=== PATIENT | male | born 1970 | race Caucasian/White ===

== ENCOUNTER → 2016-07-19 | Outpatient (CLI) | payer OTHER ==
[~2016-07-19] MED LIST: HYDROCODONE BIT1 T11 PO; MOTRIN800 MG PO
[2016-07-19 10:42] LABS: BASO % 0.6 % (0.0-1.0); EOS # 0.1 10*3/uL (0.0-0.4); EOS % 1.6 % (1.0-4.0); HEMATOCRIT 43.8 % (42.0-52.0); HEMOGLOBIN 14.5 g/dl (14.0-18.0); LYMPH # 1.7 10*3/uL (1.3-4.4); LYMPH % 27.7 % (27.0-41.0); MEAN CELL VOLUME 90.3 fl (80.0-94.0); MEAN CORPUSCULAR HGB 29.9 pg (27.0-31.0); MEAN CORPUSCULAR HGB CONC 33.1 g/dl (33.0-37.0); MEAN PLATELET VOLUME 9.9 fl (9.6-12.3); MONO # 0.3 10*3/uL (0.1-1.0); MONO % 5.2 % (3.0-9.0); NEUT % 64.7 % (47.0-73.0); PLATELET COUNT AUTOMATED 185 10*3/uL (130-400); RED BLOOD COUNT 4.85 10*6/uL (4.50-5.90); RED CELL DISTRI WIDTH 12.6 % (0-14.5); WHITE BLOOD COUNT 6.2 10*3/uL (4.8-10.8)
[2016-07-19 11:12] LABS: BILIRUBIN NEGATIVE (NEGATIVE); BLOOD TRACE-INTACT (NEGATIVE); CLARITY CLEAR (CLEAR); COLOR YELLOW (YELLOW); GLUCOSE NEGATIVE (NEGATIVE); KETONE NEGATIVE (NEGATIVE); LEUKO ESTERASE NEGATIVE (NEGATIVE); NITRITE NEGATIVE (NEGATIVE); PH 5.5 (5.0-9.0); PROTEIN NEGATIVE (NEGATIVE); SPECIFIC GRAVITY 1.025 (1.005-1.030); UROBILINOGEN 0.2 E.U./dl (0.2-1.0)
[2016-07-19 11:13] LABS: ALBUMIN 4.1 gm/dl (3.1-4.5); ALKALINE PHOSPHATASE 44 U/L (45-117); BILIRUBIN, TOTAL 0.6 mg/dl (0.2-1.0); BUN 17 mg/dl (7-24); CARBON DIOXIDE 27 mmol/L (21-32); CHLORIDE 108 mmol/L (98-107); EST GLOM FILT AFRICAN AMERICAN > 60 ml/min; GLUCOSE 93 mg/dL (65-99); POTASSIUM 4.1 mmol/L (3.5-5.1); SGOT/AST 89 IU/L (3-35); SGPT/ALT 49 U/L (12-78); SODIUM 139 mmol/L (136-145); TOTAL PROTEIN 7.3 gm/dL (6.4-8.2)
[2016-07-19 11:23] LABS: MUCOUS 1+; WBC 0-2 wbc/hpf (0-5)
== END | disposition home or self-care (01) ==
LOC: LAB 09:04
PROVIDERS: Orthopaedic Surgery
DX: M17.11 Unilateral primary osteoarthritis, right knee (principal); Z96.651 Presence of right artificial knee joint

== ENCOUNTER → 2016-07-24 | Outpatient (CLI) | payer OTHER | END | disposition home or self-care (01) | LOC: LAB 09:21 | DX: M17.11 Unilateral primary osteoarthritis, right knee (principal) ==

== ENCOUNTER 2016-07-25 01:17 | Inpatient (IN) | payer OTHER ==
[~2016-07-25] VITALS: Ht 177.8 cm; Wt 96.6 kg
[2016-07-25] VITALS (9 sets, daily range): BP systolic 118–147; BP diastolic 70–97
--- NOTE | ~2016-07-25 | O ---
[place], [place] OPERATIVE NOTE NAME: YENNI KAPOOR UNIT #: [id number] ROOM: 504 DOCTOR: EROS PARDO DO BIRTHDATE: [birth year] DOS: 07/25/2016 PREPROCEDURE DIAGNOSIS: Right knee osteoarthritis with retained hardware. POSTPROCEDURE DIAGNOSIS: Right knee osteoarthritis with retained hardware. OPERATIVE PROCEDURE: 1. Right knee removal of retained hardware. 2. Right tricompartmental total knee arthroplasty. SURGEON: Eros Pardo DO. LOAN OFFICER: Nehemiah Arechiga and Georgini. INDICATIONS: The patient is a 46-year-old male with a history of multiple surgeries to the right knee including an anterior cruciate repair over 10 years ago. The patient has had two knee scopes since that time with progressive degenerative changes in the knee. The patient has failed any further conservative treatment. He is unable to continue with his employment without a definitive procedure. The risks and benefits of the total knee replacement were discussed with the patient. Preoperative labs and x-rays were obtained. PROCEDURE IN DETAIL: The right knee was marked in the holding area. The patient was brought to the operative suite. A spinal anesthetic was performed by Anesthesia. The patient was placed supine on the operative table. A time-out was performed. The right lower extremity was prepped and draped in the usual orthopedic manner. The patient received Ancef 2 grams IV piggyback. The area about the midline patellar incision was injected with Marcaine 0.5% with epinephrine. The extremity was exsanguinated and tourniquet was inflated to 350 mmHg. The midline incision was made sharply with a scalpel and subcutaneous tissue was spread down to the level of the quadriceps mechanism and peritenon. Attention was turned to the distal portion of the incision, where an interference screw was noted to be present and considered to interfere with the process of replacing the right knee. Several pieces of nonabsorbable suture consistent with Mersilene or Ethibond were removed from the distal incision. The ACL was excised from the intra-articular portion of the knee and the tunnel was followed distally until the interference screw was met. The most superficial portion of the interference screw was cleared of any bony overgrowth or fibrous tissue. A 3.5 helical screwdriver was used to remove the screw manually. The area was copiously irrigated with normal saline and attention was then turned to the total knee replacement. The ConforMIS total knee was utilized and followed in a stepwise fashion. The femur was exposed and the collateral ligaments were retracted and protected. The step one jig was put into place and found to be appropriate. The holes were drilled and the distal cutting jig was put into place. The distal cut was made and evaluated for accuracy. The jig was removed and the next custom jig was put into place and held with pins. The anterior stylet was utilized to avoid any notching of the femur. The anterior cut was made with an oscillating saw, followed by a posterior and an anterior chamfer. This was done in a neutral [place], [place] OPERATIVE NOTE NAME: YENNI KAPOOR UNIT #: [id number] ROOM: [facility] DOCTOR: EROS PARDO DO BIRTHDATE: [birth year] position. The jig was removed and the next custom jig was placed for the 2 posterior chamfer cuts. The jig was removed and all cuts were evaluated. Any remaining osteophytes were then removed from the distal femur. Any remaining medial or lateral meniscus tissue was debrided as well. The tibial cutting guide was put into position and the arms were marked and articular cartilage was cleared with the ring curette down to the bone. This was then held in place with 2 parallel pins and a cross pin. The custom jig was noted to fit congruently against the tibia. The oscillating saw was used to create the tibial bone resection at the [place] 8-degree slope. When this was completed, the cutting jigs were removed. The area was copiously irrigated with normal saline and any remaining osteophytes were removed. The trials were put into place with a lateral insert A noted to be 0.6 mm thicker than the medial insert. The trials were noted to fit snugly with full extension and flexion past 120 degrees. Varus and valgus stress testing was performed at neutral and -30 degrees and found to be adequate. Attention was then turned to the patella. Osteophytes were removed from the patella and the patella was held with two towel clips, and the oscillating saw was used to remove approximately 9 mm from the articular surface of the patella. The patellar drill guide was then put into place and 3 pegs were drilled. The button trial was placed and the knee was again taken through the range of motion from 0 to past 120 with excellent stability at 0 and 30 on varus and valgus angles as well as excellent patellar tracking. All trials were removed and the tourniquet was released. All areas of the cut bones were copiously irrigated with normal saline and electrocautery was used to control any significant bleeding. The implants were prepared and the cement was prepared. The extremity was exsanguinated with an Esmarch bandage and the tourniquet was reinflated to 350 mmHg. The area was irrigated with normal saline. The methyl methacrylate was mixed and the tibial implant was covered with the [place] bone cement. This was impacted into place and then the excess cement was removed. In a similar fashion, the femoral implants were cemented into place and excess cement was removed. Trial polyethylene inserts were put into place and the knee was placed in 0 degree or full extension. The patella implant was cemented in place and held with a patellar clamp. The knee was copiously irrigated with normal saline and any excess cement was removed. The trial polyethylene inserts were removed. Evaluation was performed for any posterior cement particles. The prosthetic medial and lateral inserts were snapped into place and impacted. It is noted that the stem drill and keel punch were utilized to prepare the tibia prior to cementing. The incision was closed in a layered fashion with 0 Vicryl for the quadriceps mechanism. The opening in the tibia where the interference screw had been removed was packed with autologous bone graft. The subcutaneous layer was closed with 2-0 Vicryl and the wound was completed with skin kamran. It is noted that the posterior capsule was injected prior to final placement of the polyethylene inserts. Xeroform, 4 x 4s, cast padding, ABDs, and an Albino bandage were applied. The [place], [place] OPERATIVE NOTE NAME: YENNI KAPOOR UNIT #: [id number] ROOM: [facility] DOCTOR: EROS PARDO DO BIRTHDATE: [birth year] tourniquet was released. The patient was taken to the recovery room in satisfactory condition. COUNTS: Sponge and needle count correct. ESTIMATED BLOOD LOSS: 250 mL. SPECIMENS: Bone from the distal femur and proximal tibia, soft tissue including the meniscus tissue and interference screw, which was removed from the proximal tibia. DRAINS: None. PACKING: None. COMPLICATIONS: None. FINDINGS: Tricompartmental osteoarthritis of the right knee. IMPLANTS: ConforMIS 2 patient specific, tibial tray prosthesis, femoral implant and polyethylene medial and lateral inserts and All-Poly patellar implants. PREOPERATIVE ANTIBIOTIC: Ancef 2 grams IV piggyback. INTRAOPERATIVE INJECTION: Marcaine 0.5% with epinephrine. EROS PARDO DO CM:OPRECORD:OPERATIVE NOTE 1419 10 EROS PARDO DO 07/25/16 2122 interface
[2016-07-26] VITALS: BP 114/84
[2016-07-26 04:00] VITALS: BP 120/80
[2016-07-26 07:15] LABS: BASO % 0.3 % (0.0-1.0); EOS % 0.1 % (1.0-4.0); HEMATOCRIT 35.8 % (42.0-52.0); HEMOGLOBIN 11.9 g/dl (14.0-18.0); IG # 0.1 10*3/uL (0.0-0.1); LYMPH # 0.8 10*3/uL (1.3-4.4); LYMPH % 7.6 % (27.0-41.0); MEAN CELL VOLUME 90.6 fl (80.0-94.0); MEAN CORPUSCULAR HGB 30.1 pg (27.0-31.0); MEAN CORPUSCULAR HGB CONC 33.2 g/dl (33.0-37.0); MEAN PLATELET VOLUME 9.8 fl (9.6-12.3); MONO # 0.9 10*3/uL (0.1-1.0); MONO % 9.2 % (3.0-9.0); NEUT # 8.4 10*3/uL (2.3-7.9); NEUT % 82.3 % (47.0-73.0); PLATELET COUNT AUTOMATED 150 10*3/uL (130-400); RED BLOOD COUNT 3.95 10*6/uL (4.50-5.90); RED CELL DISTRI WIDTH 12.5 % (0-14.5); WHITE BLOOD COUNT 10.2 10*3/uL (4.8-10.8)
[2016-07-26 07:37] LABS: ALBUMIN 3.2 gm/dl (3.1-4.5); ALKALINE PHOSPHATASE 37 U/L (45-117); BILIRUBIN, TOTAL 0.9 mg/dl (0.2-1.0); BUN 10 mg/dl (7-24); CARBON DIOXIDE 26 mmol/L (21-32); CHLORIDE 102 mmol/L (98-107); CHOLESTEROL 97 mg/dL (<200); EST GLOM FILT AFRICAN AMERICAN > 60 ml/min; GLUCOSE 134 mg/dL (65-99); MAGNESIUM 1.9 mg/dL (1.5-2.1); PHOSPHOROUS 2.5 mg/dL (2.5-4.9); POTASSIUM 3.7 mmol/L (3.5-5.1); SGOT/AST 21 IU/L (3-35); SGPT/ALT 28 U/L (12-78); SODIUM 136 mmol/L (136-145); TOTAL PROTEIN 5.9 gm/dL (6.4-8.2); TRIGLYCERIDES 54 mg/dl (<150); VLDL CHOLESTEROL 11 mg/dL (6-40)
[2016-07-26 07:43] LABS: FREE T4 1.13 ng/dl (0.76-1.46); HDL CHOLESTEROL 44 mg/dl (40-60); LDL CHOLESTEROL 42 mg/dL (9-159); THYROID STIM HORMONE (HS) 0.742 uIU/ml (0.358-4.75)
[2016-07-26 08:00] VITALS: BP 119/66
[2016-07-26 08:47] LABS: HEMOGLOBIN A1c 5.2 % (4.8-5.6)
[2016-07-26 09:20] LABS: VITAMIN D, 25-HYDROXY 29.8 ng/mL (30-100)
[2016-07-26 12:00] VITALS: BP 129/63
[2016-07-26] MEDS ORDERED: OXYCONTIN10 M1 PO (12:24)
[2016-07-26] MEDS ORDERED: Percocet 325 MG1 TAB PO (12:24)
[2016-07-26] MEDS ORDERED: ENOXAPARIN40 MG/0.2 SC (12:24)
[2016-07-26] MEDS ORDERED: WALKER (12:24)
[2016-07-26 16:00] VITALS: BP 136/81
[2016-07-26 20:00] VITALS: BP 128/74
[2016-07-27] VITALS: BP 127/61
[2016-07-27 06:56] LABS: BASO % 0.4 % (0.0-1.0); EOS # 0.1 10*3/uL (0.0-0.4); EOS % 1.2 % (1.0-4.0); HEMATOCRIT 32.5 % (42.0-52.0); LYMPH # 1.3 10*3/uL (1.3-4.4); LYMPH % 15.1 % (27.0-41.0); MEAN CELL VOLUME 89.8 fl (80.0-94.0); MEAN CORPUSCULAR HGB 30.4 pg (27.0-31.0); MEAN CORPUSCULAR HGB CONC 33.8 g/dl (33.0-37.0); MEAN PLATELET VOLUME 9.9 fl (9.6-12.3); MONO # 0.8 10*3/uL (0.1-1.0); MONO % 9.2 % (3.0-9.0); NEUT # 6.2 10*3/uL (2.3-7.9); NEUT % 73.7 % (47.0-73.0); PLATELET COUNT AUTOMATED 157 10*3/uL (130-400); RED BLOOD COUNT 3.62 10*6/uL (4.50-5.90); RED CELL DISTRI WIDTH 12.6 % (0-14.5); WHITE BLOOD COUNT 8.5 10*3/uL (4.8-10.8)
[2016-07-27 08:00] VITALS: BP 106/88
[2016-07-27 12:00] VITALS: BP 120/73
[2016-07-27 16:00] VITALS: BP 127/67
[2016-07-27 19:52] VITALS: BP 135/77
[2016-07-28] VITALS: BP 124/61
[2016-07-28 06:13] LABS: BASO % 0.3 % (0.0-1.0); EOS # 0.1 10*3/uL (0.0-0.4); EOS % 1.3 % (1.0-4.0); HEMATOCRIT 32.6 % (42.0-52.0); LYMPH # 1.3 10*3/uL (1.3-4.4); LYMPH % 16.6 % (27.0-41.0); MEAN CELL VOLUME 88.8 fl (80.0-94.0); MEAN CORPUSCULAR HGB CONC 33.7 g/dl (33.0-37.0); MEAN PLATELET VOLUME 9.9 fl (9.6-12.3); MONO # 0.7 10*3/uL (0.1-1.0); MONO % 8.4 % (3.0-9.0); NEUT # 5.8 10*3/uL (2.3-7.9); NEUT % 73.1 % (47.0-73.0); PLATELET COUNT AUTOMATED 176 10*3/uL (130-400); RED BLOOD COUNT 3.67 10*6/uL (4.50-5.90); RED CELL DISTRI WIDTH 12.5 % (0-14.5); WHITE BLOOD COUNT 7.9 10*3/uL (4.8-10.8)
[2016-07-28 08:00] VITALS: BP 135/70
[2016-07-28 12:00] VITALS: BP 128/66
== END 2016-07-28 12:52 | disposition home or self-care (01) | DRG 468 ==
LOC: SDC 01:17 → 5E 08:25 → SDC 09:30 → 5E 07-28 12:52
PROVIDERS: Internal Medicine; Orthopaedic Surgery
PROC: 0SPC0JZ Removal of Synthetic Substitute from Right Knee Joint, Open Approach (ICD-10-PCS; principal; 2016-07-25)
PROC: 0SRC0J9 Replacement of Right Knee Joint with Synthetic Substitute, Cemented, Open Approach (ICD-10-PCS; principal; 2016-07-25)
DX: M17.11 Unilateral primary osteoarthritis, right knee (principal); E87.8 Other disorders of electrolyte and fluid balance, not elsewhere classified; R00.1 Bradycardia, unspecified; R31.29 Other microscopic hematuria

== ENCOUNTER → 2016-08-28 | Outpatient (CLI) | payer OTHER ==
[~2016-08-28] MED LIST changes: +ENOXAPARIN40 MG/0.2 SC; +OXYCONTIN10 M1 PO; +Percocet 325 MG1 TAB PO; +WALKER
== END | disposition home or self-care (01) ==
LOC: ORTHO 02:13
DX: Z01.818 Encounter for other preprocedural examination (principal); M25.561 Pain in right knee; M25.461 Effusion, right knee; Z96.651 Presence of right artificial knee joint

== ENCOUNTER → 2016-09-11 | Outpatient (CLI) | payer OTHER ==
[~2016-09-11] MED LIST changes: +MELOXICAM7.5 MG PO; +PERCOCET 325 MG1 TA2 PO
[2016-09-11 11:21] LABS: BASO % 0.5 % (0.0-1.0); EOS # 0.2 10*3/uL (0.0-0.4); EOS % 2.8 % (1.0-4.0); HEMATOCRIT 40.1 % (42.0-52.0); HEMOGLOBIN 13.4 g/dl (14.0-18.0); LYMPH # 1.8 10*3/uL (1.3-4.4); LYMPH % 28.9 % (27.0-41.0); MEAN CELL VOLUME 91.6 fl (80.0-94.0); MEAN CORPUSCULAR HGB 30.6 pg (27.0-31.0); MEAN CORPUSCULAR HGB CONC 33.4 g/dl (33.0-37.0); MEAN PLATELET VOLUME 9.8 fl (9.6-12.3); MONO # 0.4 10*3/uL (0.1-1.0); MONO % 6.6 % (3.0-9.0); NEUT # 3.7 10*3/uL (2.3-7.9); NEUT % 60.9 % (47.0-73.0); PLATELET COUNT AUTOMATED 189 10*3/uL (130-400); RED BLOOD COUNT 4.38 10*6/uL (4.50-5.90); WHITE BLOOD COUNT 6.1 10*3/uL (4.8-10.8)
== END | disposition home or self-care (01) ==
LOC: CANPRESDC → LAB 10:00 → SDC 10:15 → EDSTATUS 09-14 10:15
PROVIDERS: Orthopaedic Surgery
DX: M24.561 Contracture, right knee (principal); Z96.651 Presence of right artificial knee joint

== ENCOUNTER → 2016-09-20 | Outpatient (CLI) | payer OTHER | END | disposition home or self-care (01) | LOC: ORTHO 03:21 | DX: Z47.1 Aftercare following joint replacement surgery (principal); Z96.651 Presence of right artificial knee joint ==

== ENCOUNTER → 2017-01-10 | Outpatient (CLI) | payer OTHER | END | disposition home or self-care (01) | LOC: ORTHO 04:08 | DX: Z46.89 Encounter for fitting and adjustment of other specified devices (principal); Z96.651 Presence of right artificial knee joint ==

== ENCOUNTER → 2017-04-03 | Outpatient (CLI) | payer SELFPAY | END | disposition home or self-care (01) | LOC: ORTHO 02:18 | DX: M79.661 Pain in right lower leg (principal); R60.9 Edema, unspecified; Z96.651 Presence of right artificial knee joint ==

== ENCOUNTER → 2017-04-25 | Outpatient (CLI) | payer OTHER | END | disposition home or self-care (01) | LOC: SDC 02:20 → EDSTATUS 11:00 → SDC 11:00 | DX: M71.21 Synovial cyst of popliteal space [Baker], right knee (principal) ==

== ENCOUNTER → 2017-07-13 | Outpatient (CLI) | payer OTHER | END | disposition home or self-care (01) | LOC: ORTHO 02:40 | DX: Z47.1 Aftercare following joint replacement surgery (principal); Z96.651 Presence of right artificial knee joint ==

== ENCOUNTER → 2020-10-28 | Outpatient (CLI) | payer OTHER ==
[2020-10-28 08:20] LABS: CREATININE 0.99 mg/dL (0.70-1.30)
== END | disposition home or self-care (01) ==
LOC: LAB 07:42 → CT 08:00
PROVIDERS: ATTEND Surgery
DX: K40.30 Unilateral inguinal hernia, with obstruction, without gangrene, not specified as recurrent (principal)

== ENCOUNTER → 2020-11-29 | Day surgery (SDC) | payer OTHER ==
[2020-11-25 14:07] VITALS: BP 118/66
[~2020-11-29] VITALS: Ht 177.8 cm; Wt 98.9 kg
[~2020-11-29] MED LIST changes: +COLACE100 MG PO; +MELATONIN10 M2 PO; +PERCOCET 5-3251 EACH PO; +ZOFRAN4 MG PO
[2020-11-29 08:40] VITALS: BP 127/79
[2020-11-29 09:51] VITALS: BP 108/56
[2020-11-29 10:06] VITALS: BP 101/62
[2020-11-29 10:21] VITALS: BP 95/52
[2020-11-29 10:36] VITALS: BP 100/64
[2020-11-29 10:51] VITALS: BP 100/60
== END | disposition home or self-care (01) ==
LOC: SDC 11-25 14:00
PROVIDERS: ATTEND Surgery
DX: K40.90 Unilateral inguinal hernia, without obstruction or gangrene, not specified as recurrent (principal); Z20.822 Contact with and (suspected) exposure to COVID-19